=== PATIENT | male | born 2000 | race Hispanic/Latino ===

== ENCOUNTER 2024-03-03 16:45 | Emergency (ER) | payer SELFPAY ==
[~2024-03-03] VITALS: Ht 167.6 cm; Wt 65.8 kg
[2024-03-03 16:46] VITALS: TEMP 98.4
[2024-03-03] MEDS: dexaMETHasone SOD PHOSPHATE 4 MG/ML 1ML VIAL IM ONE (17:14)
[2024-03-03] MEDS: acetaMINOPHEN 500 MG TABLET PO ONE (17:14)
[2024-03-03 17:22] VITALS: BP 132/86; PULSE 72; RESP 16; O2SAT 100
[2024-03-03 17:24] LABS: APPEARANCE,URINE CLEAR (CLEAR); BILIRUBIN,URINE NEGATIVE (NEGATIVE); COLOR,URINE YELLOW (YELLOW); GLUCOSE, URINE (UA) NEGATIVE (NEGATIVE); KETONES,URINE 5 mg/dL (NEGATIVE); LEUKOCYTE ESTERASE ,URINE NEGATIVE Leu/uL (NEGATIVE); NITRATE,URINE NEGATIVE (NEGATIVE); OCCULT BLOOD,URINE NEGATIVE (NEGATIVE); PH,URINE 6.5 (5.0-8.0); PROTEIN,URINE 20 mg/dL (NEGATIVE); UROBILINOGEN,URINE 0.2 mg/dL (0.2-1.0)
[2024-03-03 17:27] LABS: ADD UA MICROSCOPIC YES
[2024-03-03 17:30] LABS: MUCUS,URINE RARE LPF (None Seen); SQUAMOUS EPITHELIAL CELL,UR RARE /HPF (0-2)
[2024-03-03] MEDS ORDERED: IBUP-2077 PO (17:38)
[2024-03-03] MEDS ORDERED: METH4TAB3 PO (17:38)
== END 2024-03-03 17:45 | disposition home or self-care (01) ==
LOC: EDH 16:45
DX: M94.0 Chondrocostal junction syndrome [Tietze] (principal)
CPT/HCPCS: 99284; 71045; 81001; 96372; J1100